=== PATIENT | male | born 1990 | race Caucasian/White ===

== ENCOUNTER 2020-02-21 21:38 | Emergency (ER) | payer MEDICAID ==
[~2020-02-21] VITALS: Ht 180.3 cm; Wt 85.7 kg
[2020-02-21 21:55] VITALS: BP_SYST 154
[2020-02-21] MEDS ORDERED: ONDANSETRON HCL 4 MG/2 ML VIAL IVP ONE (22:15)
[2020-02-21] MEDS ORDERED: NACL 0.9% 1,000 ML IV ONE (22:15)
[2020-02-21] MEDS ORDERED: KETOROLAC TROMETHAMINE 30 MG VIAL IVP ONE (22:15)
[2020-02-21 22:28] LABS: BASOPHILS % (AUTO) 0.8 % (0.0-2.0); EOSINOPHILS # (AUTO) 0.2 K/uL (0.0-0.4); EOSINOPHILS % (AUTO) 2.8 % (0.0-4.0); HEMATOCRIT 46.8 % (36-54); LYMPHOCYTES # (AUTO) 2.1 K/uL (1.0-5.5); LYMPHOCYTES % (AUTO) 32.9 % (20.5-51.5); MEAN CORPUSCULAR HEMOGLOBIN 31 pg (27-31); MEAN CORPUSCULAR HGB CONC 34 % (32-36); MEAN CORPUSCULAR VOLUME 89 fL (79.0-98.0); MONOCYTES # (AUTO) 0.6 K/uL (0.0-1.0); MONOCYTES % (AUTO) 9.4 % (1.7-9.3); NEUTROPHILS # (AUTO) 3.4 K/uL (1.8-7.7); NEUTROPHILS % (AUTO) 54.1 % (40.0-70.0); PLATELET COUNT (AUTO) 275 K/uL (130-430); RED BLOOD CELL COUNT(AUTO) 5.24 MIL/uL (4.2-6.2); RED CELL DISTRIBUTION WIDTH 13.2 % (9.0-15.0); WHITE BLOOD COUNT (AUTO) 6.3 K/uL (4.8-10.8)
[2020-02-21 22:29] LABS: BILIRUBIN,URINE NEGATIVE (NEGATIVE); BLOOD, URINE NEGATIVE (NEGATIVE); CLARITY/URINE CLEAR (CLEAR); COLOR,URINE YELLOW (YELLOW); GLUCOSE,URINE NEGATIVE (NEGATIVE); KETONES,URINE NEGATIVE (NEGATIVE); LEUKOCYTE ESTERASE ,URINE NEGATIVE (NEGATIVE); NITRITE, URINE NEGATIVE (NEGATIVE); PROTEIN URINE NEGATIVE (NEGATIVE); UROBILINOGEN,URINE 0.2 (0.2-1.0)
[2020-02-21 22:49] LABS: CALCIUM 8.5 mg/dL (8.4-11.0); CREATININE 0.9 mg/dL (0.55-1.30); POTASSIUM 3.9 mmol/L (3.5-5.1)
[2020-02-21 22:55] LABS: ALBUMIN 4.1 g/dL (3.4-4.8); TOTAL BILIRUBIN 0.8 mg/dL (0.0-1.0)
[2020-02-21] MEDS ORDERED: MORPHINE 2 MG/ML INJ. SYRINGE IVP ONE (23:15)
[2020-02-21 23:32] VITALS: BP_SYST 129
== END 2020-02-21 23:32 | disposition home or self-care (01) ==
LOC: SED 21:38
DX: B02.9 Zoster without complications (principal); F17.210 Nicotine dependence, cigarettes, uncomplicated; F12.90 Cannabis use, unspecified, uncomplicated
CPT/HCPCS: 36415; 74176; 80053; 81003; 85025; 96361; 96374; 96375; 99284; J1885; J2270; J2405; J7030

== ENCOUNTER 2021-09-11 14:45 | Emergency (ER) | payer MEDICAID ==
[~2021-09-11] VITALS: Ht 180.3 cm; Wt 79.8 kg
[2021-09-11 14:50] VITALS: BP_SYST 123
--- NOTE | 2021-09-11 15:02 | NUR ---
Patient to ER bed 06 to gown for evaluation. Side rails up.
--- NOTE | 2021-09-11 15:02 | NUR ---
Report given to Bharathi HUBER
--- NOTE | 2021-09-11 15:10 | NUR ---
In ER bed 6. C/O L flank pain. No injury. Awaiting MD.
[2021-09-11] MEDS ORDERED: HYDROcodone/ACETAMIN 10-325 MG TAB PO ONE (15:15)
[2021-09-11] MEDS ORDERED: KETOROLAC TROMETHAMINE 60 MG/2 ML VIAL IM ONE (15:15)
[2021-09-11 16:09] LABS: BILIRUBIN,URINE NEGATIVE (NEGATIVE); BLOOD, URINE NEGATIVE (NEGATIVE); CLARITY/URINE CLEAR (CLEAR); COLOR,URINE YELLOW (YELLOW); GLUCOSE,URINE NEGATIVE (NEGATIVE); KETONES,URINE 3+ (NEGATIVE); LEUKOCYTE ESTERASE ,URINE NEGATIVE (NEGATIVE); NITRITE, URINE NEGATIVE (NEGATIVE); PH,URINE 8.5 (5.0-8.0); PROTEIN URINE NEGATIVE (NEGATIVE)
[2021-09-11] MEDS ORDERED: HYDR-3917 PO (16:13)
[2021-09-11] MEDS ORDERED: IBUP-1971 PO (16:13)
[2021-09-11 16:32] LABS: BACTERIA,URINE FEW /HPF (None Seen); RBC,URINE 0-3 /HPF (0-3); WBC,URINE 0-3 /HPF (0-3)
[2021-09-11 17:16] VITALS: BP_SYST 114
--- NOTE | 2021-09-11 17:20 | NUR ---
Stable VSS Minimal pain MD has reassessed and Dc'd home To exit
== END 2021-09-11 17:16 | disposition home or self-care (01) ==
LOC: SED 14:45
DX: S33.5XXA Sprain of ligaments of lumbar spine, initial encounter (principal); X58.XXXA Exposure to other specified factors, initial encounter; Y93.89 Activity, other specified; Y92.89 Other specified places as the place of occurrence of the external cause; Y99.8 Other external cause status
CPT/HCPCS: 72100; 81000; 96372; 99284; J1885